=== PATIENT | female | born 1975 | race Caucasian/White ===

== ENCOUNTER 2018-03-11 01:27 | Emergency (ER) | payer OTHER | END 2018-03-11 06:26 | disposition home or self-care (01) | LOC: JER 01:27 ==

== ENCOUNTER 2018-03-11 12:25 | Emergency (ER) | payer OTHER ==
[2018-03-11 12:41] VITALS: BP 168/90; PULSE 82; TEMP 98; BMI 25.8
[2018-03-11] MEDS ORDERED: CYCLOBENZAPRINE HCL 10 MG TABLET (FP) PO ONE (13:46)
[2018-03-11] MEDS ORDERED: KETOROLAC TROMETHAMINE 60 MG/2 ML VIAL IM ONE (13:46)
[2018-03-11] MEDS ORDERED: KETOROLAC TROMETHAMINE 30 MG/1 ML VIAL IM ONE (13:54)
[2018-03-11] MEDS ORDERED: CYCLOBENZAPRINE HCL 10 MG TABLET (FP) ONE (13:55)
[2018-03-11] MEDS ORDERED: KETOROLAC TROMETHAMINE 30 MG/1 ML VIAL ONE (13:55)
[2018-03-11 14:41] LABS: URINE APPEARANCE SLCLOUDY; URINE BILIRUBIN NEGATIVE (<2.0 mg/dL); URINE COLOR YELLOW; URINE GLUCOSE (UA) NEGATIVE (NEGATIVE); URINE KETONE NEGATIVE (NEGATIVE); URINE LEUK ESTERASE NEGATIVE (NEGATIVE); URINE NITRITE NEGATIVE (NEGATIVE); URINE PROTEIN NEGATIVE (NEGATIVE); URINE UROBILINOGEN NEGATIVE mg/dL (0.2-1.0)
--- NOTE | 2018-03-11 15:22 | PDOC ---
History of Present Illness - General Chief Complaint: Back Pain Stated Complaint: BACK PAIN Time Seen by Provider: 03/11/18 13:18 History Source: Patient Exam Limitations: Clinical Condition - History of Present Illness Initial Comments: 03/11/18 15:42 Patient with no significant past medical history present with complaint of 2 day history of right sided lower back pain which has been worsening. Patient was seen earlier this morning and emergency room here and was given Toradol IM injection with help with her pain and discharged home on naproxen for back sprain. Patient came back because Toradol medication last her for 2 hours and naproxen is not helping with the pain. Patient denies any injury or fall Timing/Duration: other (2 days) Past History - Past Medical History Allergies/Adverse Reactions: Allergies Allergy/AdvReac Type Severity Reaction Status Date / Time No Known Allergies Allergy Verified 03/11/18 12:41 Home Medications: Ambulatory Orders Aripiprazole [Abilify -] 15 mg PO HS 04/27/14 Escitalopram Oxalate [Lexapro -] 20 mg PO HS 04/27/14 Bupropion HCl [Wellbutrin -] 75 mg PO DAILY 03/11/18 Ketorolac Tromethamine [Toradol -] 10 mg PO TID PRN #21 tablet 03/11/18 Methocarbamol [Robaxin -] 500 mg PO TID PRN #21 tablet 03/11/18 Naproxen Sodium [Aleve] 220 mg PO BID 03/11/18 COPD: No CHF: No - Suicide/Smoking/Psychosocial Hx Smoking History: Unknown if ever smoked Have you smoked in the past 12 months: No Information on smoking cessation initiated: No Hx Alcohol Use: No Drug/Substance Use Hx: No Substance Use Type: None Review of Systems - Review of Systems Able to Perform ROS?: Yes Is the patient limited Setswana proficient: No Constitutional: No: Chills, Fever HEENTM: No: Symptoms Reported Respiratory: No: Symptoms reported Cardiac (ROS): No: Symptoms Reported ABD/GI: No: Constipated, Diarrhea, Nausea, Vomiting, Abdominal cramping : No: Burning, Frequency, Urgency Musculoskeletal: Yes: See HPI, Back Pain (right lower back), Muscle Pain (right sided) Neurological: No: Numbness, Paresthesia, Tingling All Other Systems: Reviewed and Negative *Physical Exam - Vital Signs Last Vital Signs Temp Pulse Resp BP Pulse Ox 98.0 F 82 16 168/90 100 03/11/18 12:40 03/11/18 12:40 03/11/18 12:40 03/11/18 12:40 03/11/18 12:40 - Physical Exam Comments: 03/11/18 15:45 GENERAL: Well developed, well nourished. Awake and alert. No acute distress. CARDIOVASCULAR: Regular rate and rhythm. No murmurs, rubs, or gallops. PULMONARY: No evidence of respiratory distress. Lungs clear to auscultation bilaterally. No wheezing, rales or rhonchi. ABDOMINAL: Soft. Non-tender. Non-distended. No rebound or guarding. No organomegaly. Normoactive bowel sounds MUSCULOSKELETAL : mild tenderness over posterior paravertebral muscle of lumbosacral spine of L4-S1 on right side. No bony deformities EXTREMITIES: No cyanosis. No clubbing. No edema. No calf tenderness. NEUROLOGICAL: Alert, awake, appropriate. No motor deficits in the lower extremities. Gait is normal without ataxia. PSYCHIATRIC: Cooperative. Good eye contact. Appropriate mood and affect. General Appearance: Yes: Nourished, Appropriately Dressed, Mild Distress Moderate Sedation - Procedure Monitoring Vital Signs: Procedure Monitoring Vital Signs Temperature 98.0 F 03/11/18 12:40 Pulse Rate 82 03/11/18 12:40 Respiratory Rate 16 03/11/18 12:40 Blood Pressure 168/90 03/11/18 12:40 O2 Sat by Pulse Oximetry (%) 100 03/11/18 12:40 ED Treatment Course - ADDITIONAL ORDERS Additional order review: Laboratory Results 03/11/18 03/11/18 13:58 13:58 Urine Color Yellow Urine Appearance Slcloudy Urine pH 5.0 Ur Specific [place] 1.016 Urine Protein Negative Urine Glucose (UA) Negative Urine Ketones Negative Urine Blood Negative Urine Nitrite Negative Urine Bilirubin Negative Urine Urobilinogen Negative Ur Leukocyte Esterase Negative Urine HCG, Qual Negative - RADIOLOGY Radiology Studies Ordered: Category Date Time Status SPINE-LUMBAR SACRAL [RAD] Stat Radiology 03/11/18 13:46 Ordered - Medications Given in the ED: ED Medications Discontinued Medications Generic Name Dose Route Start Last Admin Trade Name Freq PRN Reason Stop Dose Admin Cyclobenzaprine HCl 10 mg 03/11/18 13:46 01/17/19 14:18 Flexeril - PO 03/11/18 13:47 10 mg ONCE ONE Administration Ketorolac Tromethamine 60 mg 03/11/18 13:46 03/11/18 14:18 Toradol Injection - IM 03/11/18 13:47 Not Given ONCE ONE Ketorolac Tromethamine 30 mg 03/11/18 13:54 03/11/18 14:18 Toradol Injection - IM 03/11/18 13:55 30 mg ONCE ONE Administration Medical Decision Making - Medical Decision Making 03/11/18 15:46 Patient with no past medical history present with complaint of persistent right lower back pain which has not been improving with prescribed NSAID medication. Patient was seen earlier this morning for same symptoms and was discharged home on NSAIDs for back strain and reported pain came back. Exam significant for mild tenderness to right paravertebral muscle. Negative straight leg test. X-ray of lumbosacral shows no acute pathology. Patient symptoms likely muscle spasm with sciatica. Toradol 30 mg IM given for pain and cyclobenzaprine 10 mg by mouth given for muscle spasm. Patient is stable for discharge on oral Toradol and Robaxin with neuro processing specialist follow-up *DC/Admit/Observation/Transfer Diagnosis at time of Disposition: Lumbago Qualifiers: Chronicity: acute Back pain laterality: right Sciatica presence: with sciatica Sciatica laterality: sciatica of right side Qualified Code(s): M54.41 - Lumbago with sciatica, right side - Discharge Dispostion Disposition: HOME Condition at time of disposition: Stable Decision to Admit order: No - Prescriptions Prescriptions: Ketorolac Tromethamine [Toradol -] 10 mg PO TID PRN #21 tablet PRN Reason: Back Pain Methocarbamol [Robaxin -] 500 mg PO TID PRN #21 tablet PRN Reason: Back Pain - Referrals Referrals: Chaka Yang MD, FA[facility] [Staff Physician] - - Patient Instructions Printed Discharge Instructions: DI for Back Pain With Sciatica Additional Instructions: Your x-ray shows no acute fracture or dislocation. The symptoms is likely from sciatica caused by muscle spasm. Take medication as prescribed and follow-up referred orthopedics processing specialist as soon as possible. - Post Discharge Activity
== END 2018-03-11 15:59 | disposition home or self-care (01) ==
LOC: JERFT 12:25
PROC: 3E0233Z Introduction of Anti-inflammatory into Muscle, Percutaneous Approach (ICD-10-PCS; principal; 2018-03-11)
DX: M54.41 Lumbago with sciatica, right side (principal)
CPT/HCPCS: 72100-TC-FY; 81003; 84703; 87077; 87086; 87186; 99281-25

== ENCOUNTER 2020-05-07 15:53 | Emergency (ER) | payer OTHER ==
[2020-05-07 16:03] VITALS: TEMP 98.6; BMI 45.6
[2020-05-07 19:50] LABS: BASO % 0.7 % (0-2.0); EOS % 1.9 % (0-4.5); HEMATOCRIT 34.9 % (32.4-45.2); HEMOGLOBIN 11.3 GM/dL (10.7-15.3); LYMPH % 21.9 % (8-40); MCH 26.8 pg (25.7-33.7); MCHC 32.4 g/dl (32.0-36.0); MEAN CELL VOLUME 82.7 fl (80-96); MEAN PLT VOLUME 8.7 fl (7.5-11.1); MONO % 5.8 % (3.8-10.2); NEUT % 69.7 % (42.8-82.8); PLATELET COUNT 321 K/MM3 (134-434); RBC 4.23 M/mm3 (3.60-5.2); RDW 14.8 % (11.6-15.6); WHITE BLOOD COUNT 10.8 K/mm3 (4.0-10.0)
[2020-05-07 19:53] VITALS: BP 160/76; PULSE 60
[2020-05-07 19:59] LABS: INR 0.98 (0.83-1.09); PROTHROMBIN TIME (PATIENT) 12.1 SEC (9.7-13.0)
[2020-05-07 20:02] LABS: ACTIVATED PTT 27.2 SECONDS (25.2-36.5)
[2020-05-07 20:18] LABS: CHLORIDE 104 mmol/L (98-107); POTASSIUM 4.7 mmol/L (3.5-5.1); SODIUM 137 mmol/L (136-145)
[2020-05-07 20:21] LABS: CALCIUM 8.8 mg/dL (8.5-10.1)
[2020-05-07 20:22] LABS: ALBUMIN 3.4 g/dl (3.4-5.0); ANION GAP 4 MMOL/L (8-16); BLOOD UREA NITROGEN 8.4 mg/dL (7-18); CO2 28 mmol/L (21-32); GLUCOSE,RANDOM 79 mg/dL (74-106)
[2020-05-07 20:25] LABS: CREATININE 0.7 mg/dL (0.55-1.3); SGOT/AST 34 U/L (15-37); SGPT/ALT 33 U/L (13-61)
[2020-05-07 20:26] LABS: BILIRUBIN,TOTAL 0.5 mg/dL (0.2-1); TOT PROT 7.4 g/dl (6.4-8.2)
[2020-05-07 20:27] LABS: ALK PHOS 78 U/L (45-117)
[2020-05-07] MEDS ORDERED: METOCLOPRAMIDE HCL INJECTION 10 MG/2 ML VIAL IVPB ONE (21:49)
[2020-05-07] MEDS ORDERED: ACETAMINOPHEN 1000 MG/100 ML VIAL (NON FORMULARY) IVPB ONE (21:49)
[2020-05-07] MEDS ORDERED: ACETAMINOPHEN INJECTION 100 ML IVPB ONE (22:04)
[2020-05-07] MEDS ORDERED: METOCLOPRAMIDE HCL INJECTION 10 MG/2 ML VIAL ONE (22:06)
[2020-05-07 22:27] LABS: EPI CELLS 22 /uL (0-25.1); HYALINE CASTS 1 /uL (0-3.1); URINE APPEARANCE CLEAR; URINE BACTERIA 1501 /uL (0-1359); URINE BILIRUBIN NEGATIVE (NEGATIVE); URINE COLOR YELLOW; URINE GLUCOSE (UA) NEGATIVE (NEGATIVE); URINE KETONE NEGATIVE (NEGATIVE); URINE LEUK ESTERASE NEGATIVE (NEGATIVE); URINE NITRITE NEGATIVE (NEGATIVE); URINE PROTEIN NEGATIVE (NEGATIVE); URINE RBC 27 /uL (0-23.9); URINE UROBILINOGEN 0.2 mg/dL (0.2-1.0); URINE WBC 17 /uL (0-25.8)
[2020-05-07 22:28] LABS: HCG,QUALITATIVE URINE Negative
== END 2020-05-07 23:34 | disposition home or self-care (01) ==
LOC: JER 15:53
PROC: 3E0333Z Introduction of Anti-inflammatory into Peripheral Vein, Percutaneous Approach (ICD-10-PCS; principal; 2020-05-07)
PROC: 3E033GC Introduction of Other Therapeutic Substance into Peripheral Vein, Percutaneous Approach (ICD-10-PCS; 2020-05-07)
DX: R42 Dizziness and giddiness (principal); R51.9 Headache, unspecified; N30.00 Acute cystitis without hematuria
CPT/HCPCS: 36415; 70450-TC; 80053; 81003; 82550; 84484; 84703; 85025; 85610; 85730; 86850; 86900; 86901; 93005; 93010; 93970-TC; 99285-25; J0131

== ENCOUNTER 2022-04-02 04:01 | Day surgery (SDC) | payer OTHER ==
[2022-03-31 16:55] VITALS: BMI 29.6
[2022-04-02] MEDS ORDERED: ACETAMINOPHEN 325 MG TABLET (FP) PO PRN (09:36)
[2022-04-02] MEDS ORDERED: IBUPROFEN 400 MG TABLET (FP) PO PRN (09:36)
[2022-04-02] MEDS ORDERED: ONDANSETRON 4 MG/2 ML VIAL IVPUSH PRN (10:16)
[2022-04-02] MEDS ORDERED: oxyCODONE HCL 5 MG TABLET PO PRN ×2 (10:16)
[2022-04-02] MEDS ORDERED: DEXAMETHASONE SOD PHOSPHATE 4 MG/1 ML VIAL ONE (10:25)
[2022-04-02] MEDS ORDERED: KETOROLAC TROMETHAMINE 30 MG/1 ML VIAL ONE (10:25)
[2022-04-02] MEDS ORDERED: LIDOCAINE HCL/PF 2% SDV 5ML VIAL ONE (10:25)
[2022-04-02] MEDS ORDERED: PROPOFOL 20 ML ONE (10:25)
[2022-04-02] MEDS ORDERED: ONDANSETRON 4 MG/2 ML VIAL ONE (10:25)
[2022-04-02] MEDS ORDERED: LACTATED RINGERS SOLUTION 1,000 ML IV SCH (10:30)
[2022-04-02 12:04] VITALS: RESP 16
[2022-04-02 13:06] VITALS: BP 105/62; PULSE 48; TEMP 98.1
== END 2022-04-02 13:25 | disposition home or self-care (01) ==
LOC: JASU-SURG 04:01
PROVIDERS: ATTEND Obstetrics & Gynecology
PROC: 0UB98ZZ Excision of Uterus, Via Natural or Artificial Opening Endoscopic (ICD-10-PCS; principal; 2022-04-02 10:00)
DX: N93.9 Abnormal uterine and vaginal bleeding, unspecified (principal); N84.0 Polyp of corpus uteri
CPT/HCPCS: 81025; 88305-TC; 94760

== ENCOUNTER 2022-05-16 05:16 | Day surgery (SDC) | payer BC, OTHER ==
[2022-05-14 14:12] VITALS: BMI 29.6
[~2022-05-16 05:16] MED LIST: BUPIVACAINE HCL/PF 0.5% (5MG/ML) 10 ML VIAL NR ONE; LIDOCAINE HCL 1%, 10 MG/ML (20ML VIAL) NR ONE; LIDOCAINE HCL 2% (50ML VIAL) NR ONE; ceFAZolin SODIUM 1 GM VIAL IVPB ONE
[2022-05-16] MEDS ORDERED: IBUPROFEN 800 MG/8 ML IJ IVPB PRN (08:38)
[2022-05-16] MEDS ORDERED: ONDANSETRON 4 MG/2 ML VIAL IVPUSH PRN ×2 (08:38→15:34)
[2022-05-16] MEDS ORDERED: oxyCODONE HCL 5 MG TABLET PO PRN ×2 (08:38→15:34)
[2022-05-16] MEDS ORDERED: LACTATED RINGERS SOLUTION 1,000 ML IV SCH (08:45)
[2022-05-16] MEDS ORDERED: LIDOCAINE HCL 2% (20ML MULTI-DOSE VIAL) ONE (10:59)
[2022-05-16] MEDS ORDERED: BUPIVACAINE HCL/PF 0.5% (5MG/ML) 10 ML VIAL ONE ×2 (11:00→12:05)
[2022-05-16] MEDS ORDERED: PROPOFOL 20 ML ONE ×5 (11:55→14:48)
[2022-05-16] MEDS ORDERED: MIDAZOLAM HCL 2 MG/2 ML SINGLE DOSE VIAL ONE ×3 (11:55→15:04)
[2022-05-16] MEDS ORDERED: DEXAMETHASONE SOD PHOSPHATE 10 MG/1 ML VIAL ONE (12:06)
[2022-05-16] MEDS ORDERED: ceFAZolin SODIUM 1 GM VIAL IVPB ONE (13:07)
[2022-05-16 18:15] VITALS: RESP 20; TEMP 97.4
[2022-05-16 19:41] VITALS: BP 110/67; PULSE 68
== END 2022-05-16 20:44 | disposition home or self-care (01) ==
LOC: JASU-SURG 05:16
PROVIDERS: ATTEND Podiatrist Foot & Ankle Surgery
PROC: 0LUN07Z Supplement Right Lower Leg Tendon with Autologous Tissue Substitute, Open Approach (ICD-10-PCS; principal; 2022-05-16 12:00)
PROC: 0QTL0ZZ Resection of Right Tarsal, Open Approach (ICD-10-PCS; 2022-05-16 12:00)
DX: M67.971 Unspecified disorder of synovium and tendon, right ankle and foot (principal); M77.31 Calcaneal spur, right foot; M21.6X1 Other acquired deformities of right foot
CPT/HCPCS: 27654; 27691; 28120; C1713; 73610-TC-RT-FY; 73630-TC-RT-FY; 76000-TC-FY; 81025; 88304-TC; 88311-TC; 94760; J1100